=== PATIENT | female | born 1980 | race Caucasian/White ===

== ENCOUNTER 2022-06-11 09:20 | Emergency (ER) | payer MEDICAID ==
[2022-06-11] MEDS ORDERED: Ketorolac 30 MG/ML SDV IM STA (09:35)
[2022-06-11 11:21] VITALS: BP 135/94; PULSE 80
== END 2022-06-11 11:21 | disposition home or self-care (01) ==
LOC: MW.ED 09:20
DX: M75.22 Bicipital tendinitis, left shoulder (principal)
CPT/HCPCS: 73030; 96372; 99283; J1885